=== PATIENT | female | born 2000 | race Caucasian/White ===

== ENCOUNTER 2022-06-08 21:54 | Emergency (ER) | payer OTHER ==
[~2022-06-08] VITALS: Ht 165.1 cm; Wt 54.5 kg
[2022-06-09 01:30] VITALS: BP 125/63
== END 2022-06-09 01:51 | disposition home or self-care (01) ==
LOC: EMS 22:32
DX: Z48.01 Encounter for change or removal of surgical wound dressing (principal); Z98.890 Other specified postprocedural states
CPT/HCPCS: 99282; Z7502

== ENCOUNTER 2023-03-13 20:51 | Emergency (ER) | payer OTHER ==
[~2023-03-13] VITALS: Ht 157.5 cm; Wt 45.5 kg
[2023-03-13 20:57] VITALS: BP 110/57; PULSE 80; RESP 20; TEMP 98.7
== END 2023-03-13 22:48 | disposition left against medical advice (07) ==
LOC: EMS 20:52
DX: R06.02 Shortness of breath (principal); R42 Dizziness and giddiness; F41.9 Anxiety disorder, unspecified; Z53.21 Procedure and treatment not carried out due to patient leaving prior to being seen by health care provider
CPT/HCPCS: 99281; Z7502